=== PATIENT | female | born 2005 | race Caucasian/White ===

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

== ENCOUNTER 2025-01-20 17:33 | Emergency (ER) | payer MEDICAID ==
[~2025-01-20] VITALS: Ht 167.6 cm; Wt 98.2 kg
[2025-01-20 18:06] LABS: URINE HCG NEGATIVE (NEG)
[2025-01-20 18:11] LABS: LEUKOCYTE ESTERASE ,URINE NEGATIVE (Neg); OCCULT BLOOD,URINE MODERATE (Neg)
[2025-01-20 18:26] LABS: UA COLLECTION TYPE CLN CATCH MIDSTREAM
[2025-01-20 18:29] LABS: MEAN PLATELET VOLUME 8.5 FL (7.4-10.4); RED CELL DISTRIBUTION WIDTH 14.0 % (11.5-14.5)
[2025-01-20 18:33] LABS: SQUAMOUS EPITHELIAL CELL,UR MANY /LPF (FEW)
[2025-01-20 18:43] LABS: NITRITES, URINE NEGATIVE (Neg)
[2025-01-20 18:44] LABS: CREATININE 0.88 MG/DL (0.40-0.90); TOTAL CARBON DIOXIDE 30.2 MMOL/L (24-32); eCRCL 96 ML/MIN; eGFR 83 ML/MIN
--- NOTE | 2025-01-20 21:40 | Physician Documentation ---
History of Present Illness ~ Chief Complaint: Abdominal Pain Stated Complaint: ABD PAIN Time Seen by MD: 21:36 HPI Patient presents to the emergency room with epigastric pain. Symptoms going on and off for the past month. Yesterday she had a terrible about which resolved however today she noticed that her urine is orange therefore came in to be evaluated. No fevers. No current pain. She is on Wegovy Medication Reconciliation Allergies: Uncoded Allergies: BLUEBERRIES (Allergy, Unknown, 08/10/23) NKA (Allergy, Unknown, 08/10/23) Scheduled Atenolol (Atenolol), 1 TAB PO DAILY Ciprofloxacin HCl (Ciprofloxacin HCl), 1 TAB PO Q12H Metronidazole* (Flagyl*), 1 TAB PO BID Ondansetron 8mg ODT (Ondansetron Odt), 1 TAB PO Q6H Prednisone (Prednisone), 1 TAB PO DAILY Miscellaneous Medications Home Med List (No Home Medications), (Reported) Discontinued Medications Amoxicillin/Potassium Clav (Augmentin 500-125 Tablet), 1 TAB PO Q12H Past Medical History Past Medical History: No Pertinent History, *PSYCH*, Anxiety, Bipolar Past Surgical History: no surgical history Alcohol Use: Occasionally Drug Use: none Lives In: Home Review of Systems ROS All review of systems negative except as per HPI Physical Exam Vital Signs: Temperature: 99.3, Source: Oral, Heart Rate: 99, Respiratory Rate: 16, BP: 126/73, Pulse Oximetry: 99, Weight: 98.200 Oxygen Flow Rate: 0 Physical Exam General: Patient is awake, alert, oriented x4 in no acute distress and well appearing.~ Head: Normocephalic and atraumatic. Eyes: Conjunctival normal. EOMI. PERRL. ENT: Mucous membranes moist. Neck: Supple, trachea is midline. Chest: Clear to auscultation bilaterally without rales, rhonchi, or wheezes. There is no accessory muscle use or retractions. Cardiac: RRR without murmurs, gallops, or rubs. Abd: Soft, nondistended, nontender, with normoactive bowel sounds. No guarding, rebound, or rigidity. Progress Results/Orders Results/Orders Orders - RINKU OLVERA MD Ultrasound Of Abdomen (01/20/25 21:46) Completed Orders - RINKU OLVERA MD Ultrasound Of Abdomen (01/20/25 21:46) Ondansetron Disint. Tablet (Zofran Odt T (01/20/25 23:10) Ciprofloxacin Tablet (Cipro Tablet) (01/20/25 23:10) Metronidazole Tablet (Flagyl Tablet) (01/20/25 23:10) Medications Received in ER Medications (Trade) Dose Ordered Sig/Yoana Route PRN Reason Start Time Stop Time Status Last Admin Dose Admin (Zofran ODT tablet) 4 mg ONCE ONCE PO 01/20/25 23:10 01/20/25 23:11 DC 01/20/25 23:44 4 MG (Cipro tablet) 500 mg ONCE ONCE PO 01/20/25 23:10 01/20/25 23:11 DC 01/20/25 23:45 500 MG (Flagyl tablet) 500 mg ONCE ONCE PO 01/20/25 23:10 01/20/25 23:11 DC 01/20/25 23:45 500 MG Vital Signs 01/20/25 01/20/25 01/20/25 01/20/25 17:34 21:16 22:09 22:15 Temp 99.3 Pulse 120 99 90 Resp 16 16 16 16 B/P (MAP) 124/83 126/73 (90) 90/64 (73) Pulse Ox 96 99 96 O2 Flow Rate 0 0 01/20/25 23:53 Temp 99.3 Pulse 93 Resp 15 B/P (MAP) 127/81 Pulse Ox 97 Laboratory Tests Test 01/20/25 17:38 01/20/25 18:06 Urine Specimen Description Cln catch midstream Urine Color Dark yellow Urine Clarity Slightly cloudy Urine pH 5.5 Urine Specific [place] >=1.030 Urine Protein Trace Urine Glucose (UA) Negative Urine Ketones >=80 Urine Occult Blood Moderate H Urine Nitrite Negative Urine Bilirubin Moderate Urine Urobilinogen 1.0 Urine Leukocyte Esterase Negative Urine RBC 3-10 Urine WBC 5-10 H Urine Squamous Epithelial Cells Many Urine Bacteria 2+ Urine Culture Indicated Rejected for culture Volume Urine Centrifuged 10 ml Urine HCG, Qualitative Negative Urine Comment White Blood Count 6.3 Red Blood Count 5.28 Hemoglobin 15.0 Hematocrit 44.1 Mean Corpuscular Volume 83.6 Mean Corpuscular Hemoglobin 28.3 Mean Corpuscular Hemoglobin Concent 33.9 Red Cell Distribution Width 14.0 Platelet Count 375 Mean Platelet Volume 8.5 Neutrophils (%) (Auto) 75.2 H Lymphocytes (%) (Auto) 16.0 L Monocytes (%) (Auto) 5.4 Eosinophils (%) (Auto) 3.1 Basophils (%) (Auto) 0.3 Neutrophils # (Auto) 4.7 Lymphocytes # (Auto) 1.0 L Monocytes # (Auto) 0.3 Eosinophils # (Auto) 0.2 Basophils # (Auto) 0.0 CBC Comment Sodium Level 139 Potassium Level 3.8 Chloride Level 103 Carbon Dioxide Level 30.2 Anion Gap 6 L Blood Urea Nitrogen 6 L Creatinine 0.88 Estimated GFR/1.73 m2 83 BUN/Creatinine Ratio 6.8 L Glucose Level 99 Calcium Level 9.1 Total Bilirubin 1.8 H Aspartate Amino Transf (AST/SGOT) 462 H Alanine Aminotransferase (ALT/SGPT) 770 H Alkaline Phosphatase 115 Total Protein 8.5 H Albumin 3.8 Globulin 4.7 H Albumin/Globulin Ratio 0.8 L Lipase 60 Chemistry Comments Medical Decision Making Additional information obtaine: N/A Findings Patient presents to the emergency room with chief complaint of epigastric pain which has since resolved. Differentials include but are not limited to gastritis cholecystitis pancreatitis diverticulitis small-bowel obstruction gas constipation therefore emergent labs and imaging indicated. Labs show mildly elevated liver enzymes that has concern for possible cholecystitis therefore ultrasound ordered which was positive for gallstones. Patient is currently pain-free. Discussed with her that it might be able to get her admitted given her history but she is declining admission. Ultrasound borderline for cholecystitis. Given risks versus benefits I will begin antibiotics. Diff Dx GI Bleed:Consideration: Include: AE fistula, Angiodysplasia, Bleeding diathesis, Blood loss anemia, Carcinoma, Diverticulosis, Diverticulitis, Esoph ageal varicies, Esophagitis, Gastritis, Gastroenteritis, Inflammatory BD, Lucero-Beasley syndrome, Meckel's diverticulum, PUD, Other Diff Dx Pain:Considerations: Include: AAA, -Complete, - Incomplete, -Inevitable, -Missed, -Threatened, Abruptio placentae, Angina/OK, Aortic dissection, Appendicitis, Bowel obstruction, Chola ngitis, Cholecystitis, Cholelithasis, Constipation, Diverticular disease, Dysmenorrhea, Ectopic , Esophageal rupture, Esophagitis, Gastritis/PUD, Gastroenteritis, GI hemorrhage, Hernia, Hepatitis, Inflammatory BD, Ischemic bowel, Mass, Ovarian cyst/torsion, Pancreatitis, PID, Porphyria, Trauma, intraabdominal, Urinary obstruction, Urinary tract infection, Urolithiasis, Oth er Diff Dx N/V/D:Considerations: Include: Appendicitis, Bowel obstruction, Dehydration, DKA, Diarrhea - bacterial, Diarrhea - parasitic, Diarrhea - viral, Diverticulitis, Diverticulosis, Drug toxicity, Electrolyte imbalance, Food pois oning, Gastroenteritis, GE reflux, GI bleed, Hepatitis, Hernia, Hypovolemia, Hypotension, Inflammatory BD, Impaction, Malnutrition, Pancreatitis, , PUD, Renal failure, Urolithiasis, Urinary obstruction, UTI, Other Diff Dx Rectal:Considerations: Include: Fissure, Fistula, Foreign body, Impaction, Perirectal abscess, Rectal prolapse, Subcutaneous abscess, Thrombosed hemorrhoid, Ulcer, UTI, Other Departure Disposition: HOME / SELF CARE / HOMELESS Impression: Primary Impression: Cholelithiasis without obstruction Condition: Fair Discharge Instructions: Cholelithiasis Additional Instructions: You can expect this pain to continue until you have your gallbladder taken out. In the meantime avoid fatty foods. Follow up with your doctor for referral for outpatient cholecystectomy. Return for uncontrolled symptoms or fevers Referrals: NO PRIMARY CARE PROVIDER (PCP) Prescriptions Metronidazole* (Flagyl*) 500 Mg Tablet 1 TAB PO BID, #20 TAB Prov: RINKU OLVERA MD 01/20/25 Ciprofloxacin HCl (Ciprofloxacin HCl) 500 Mg Tab 1 TAB PO Q12H for 10 Days, #20 TAB Prov: RINKU OLVERA MD 01/20/25 Ondansetron 8mg ODT (Ondansetron Odt) 8 Mg Tab.rapdis 1 TAB PO Q6H for nausea/vomiting for 3 Days, #12 TAB 0 Refills Prov: RINKU OLVERA MD 01/20/25 Signature Scribe Signature: No scribe Attestation: The note accurately reflects work and decisions made by me.Rinku Olvera MD 01/20/25 23:03 RINKU OLVERA MD Jan 20, 2025 21:40
[2025-01-20] MEDS ORDERED: AMOX-419 PO (23:05)
[2025-01-20] MEDS ORDERED: ONDA-245 PO (23:05)
[2025-01-20] MEDS ORDERED: METR-159 PO (23:11)
[2025-01-20] MEDS ORDERED: CIPR-458 PO (23:11)
--- NOTE | 2025-01-20 23:19 | RADIOLOGY REPORT ---
ABDOMINAL ULTRASOUND CLINICAL HISTORY: epigastric pain, elevated LE TECHNIQUE: Multiple grayscale and color Doppler ultrasound images were obtained of the abdomen. WID: COMPARISON: None FINDINGS: Liver and Biliary System: Increased echogenicity, upper limits of normal size measuring 17.6 cm. No focal hepatic observations. No intrahepatic bile duct dilatation. The common duct measures 0.3 cm at the valeri hepatis. The gallbladder is contracted without wall thickening, gallbladder wall measuring 3 mm. Cholelithiasis. Pancreas: Visualized portions are grossly unremarkable. Kidneys: The right kidney is 9.9 cm . No hydronephrosis, increased echogenicity, shadowing stone, or focal lesion. IMPRESSION: 1. Cholelithiasis without acute cholecystitis or biliary ductal dilatation. 2. Hepatic steatosis.
[2025-01-20] MEDS: ondansetron 4mg rapidly disintigrating tab PO ONE (23:44)
[2025-01-20] MEDS: ciprofloxacin 250mg tablet PO ONE (23:45)
[2025-01-20 23:53] VITALS: BP 127/81; PULSE 93; RESP 15; TEMP 99.3; O2SAT 97
== END 2025-01-20 23:56 | disposition home or self-care (01) ==
LOC: ER 17:33
DX: K80.20 Calculus of gallbladder without cholecystitis without obstruction (principal); F41.9 Anxiety disorder, unspecified; F31.9 Bipolar disorder, unspecified; Z79.899 Other long term (current) drug therapy; Z72.89 Other problems related to lifestyle
CPT/HCPCS: 36415; 76700; 80053; 81001; 81025; 83690; 85025; 99284